=== PATIENT | female | born 1995 | race African-American/Black ===

== ENCOUNTER 2016-09-29 14:49 | Emergency (ER) | payer MEDICAID ==
[~2016-09-29] VITALS: Ht 175.3 cm; Wt 68.6 kg
[2016-09-29 14:50] VITALS: BP 101/69
[2016-09-29] MEDS ORDERED: IBUPROFEN 200 MG TABLET ONE (15:11)
[2016-09-29] MEDS ORDERED: ACETAMINOPHEN 325 MG TABLET ONE (15:11)
[2016-09-29] MEDS ORDERED: IBUPROFEN 200 MG TABLET PO ONE (15:30)
[2016-09-29] MEDS ORDERED: ACETAMINOPHEN 325 MG TABLET PO ONE (15:30)
== END 2016-09-29 15:29 | disposition home or self-care (01) ==
LOC: ED 15:26
DX: J02.9 Acute pharyngitis, unspecified (principal)
CPT/HCPCS: 99283

== ENCOUNTER 2017-02-22 05:17 | Emergency (ER) | payer MEDICAID ==
[~2017-02-22] VITALS: Ht 175.3 cm; Wt 75.1 kg
[2017-02-22] MEDS ORDERED: SODIUM CHLORIDE 0.9% 1,000 ML IV ONE (06:15)
[2017-02-22] MEDS ORDERED: MAALOX/HYOSCYAMINE/LIDOCAINE 45 ML BTL ONE (06:28)
[2017-02-22] MEDS ORDERED: SODIUM CHLORIDE FLUSH 10ML SYR IVF ONE (06:30)
[2017-02-22] MEDS ORDERED: MAALOX/HYOSCYAMINE/LIDOCAINE 45 ML BTL PO ONE (06:30)
[2017-02-22 06:48] LABS: ALANINE AMINOTRANSFERASE 15 U/L (12-78); ALBUMIN 3.1 g/dL (3.4-5.0); ANION GAP 6 mmol/L (5-15); CALCIUM 8.7 mg/dL (8.5-10.1); CHLORIDE 108 mmol/L (98-107); CREATININE 0.58 mg/dL (0.55-1.02)
[2017-02-22 06:52] LABS: ALKALINE PHOSPHATASE 49 U/L (45-117); BILIRUBIN,TOTAL 0.2 mg/dL (0.2-1.0); TOTAL PROTEIN 7.1 g/dL (6.4-8.2)
[2017-02-22 06:53] LABS: CULTURE INDICATED? NO; MICROSCOPIC NOT IND
[2017-02-22 07:18] LABS: BASOPHILS # (AUTO) 0.04 x10^3/uL (0-0.1); BASOPHILS % (AUTO) 1 % (0-1); EOSINOPHILS # (AUTO) 0.14 x10^3/uL (0-0.4); EOSINOPHILS % (AUTO) 3 % (1-7); LYMPHOCYTES # (AUTO) 2.32 x10^3/uL (1-3.4); LYMPHOCYTES % (AUTO) 44 % (22-44); MD SCAN; MEAN CORPUSCULAR HEMOGLOBIN 25.6 pg (27.0-34.8); MEAN CORPUSCULAR HGB CONC 32.2 g/dL (32.4-35.8); MEAN CORPUSCULAR VOLUME 79.6 fL (80-100); MEAN PLATELET VOLUME 8.4 fL (7.4-10.4); MONOCYTES # (AUTO) 0.64 x10^3/uL (0.2-0.8); MONOCYTES % (AUTO) 12 % (2-9); NEUTROPHILS % (AUTO) 40 % (42-75); PLATELET COUNT 149 x10^3/uL (130-400); RED BLOOD COUNT 4.37 x10^6/uL (3.82-5.3); RED CELL DISTRIBUTION WIDTH 18.5 % (9.6-15.2)
[2017-02-22 08:33] VITALS: BP 120/73
== END 2017-02-22 09:35 | disposition home or self-care (01) ==
LOC: ED 07:25
DX: O26.891 Other specified pregnancy related conditions, first trimester (principal); Z3A.00 Weeks of gestation of pregnancy not specified; R10.9 Unspecified abdominal pain; K08.89 Other specified disorders of teeth and supporting structures
CPT/HCPCS: 36415; 76700; 76801; 80053; 81003; 83690; 84702; 84703; 85025; 99285

== ENCOUNTER 2017-10-22 08:41 | Outpatient (CLI) | payer MEDICAID ==
[~2017-10-22] VITALS: Ht 175.3 cm; Wt 100.0 kg
[2017-10-22 08:55] VITALS: BP 114/68
[2017-10-22] MEDS ORDERED: PREN1TAB60 PO (09:24)
== END 2017-10-22 09:58 | disposition home or self-care (01) ==
LOC: LDOP 08:41
PROVIDERS: ATTEND Obstetrics & Gynecology
DX: O26.893 Other specified pregnancy related conditions, third trimester (principal); R10.9 Unspecified abdominal pain; Z3A.37 37 weeks gestation of pregnancy
CPT/HCPCS: 59025; 99201; 99211; G0463

== ENCOUNTER 2017-11-03 04:17 | Inpatient (IN) | payer MEDICAID ==
[2017-11-03] VITALS (7 sets, daily range): BP systolic 98–138; BP diastolic 51–76
[~2017-11-03] VITALS: Ht 175.3 cm; Wt 100.0 kg
[~2017-11-03 04:17] MED LIST: PREN1TAB60 PO
[2017-11-03] MEDS ORDERED: SODIUM CITRATE/CITRIC ACID 30 ML UDC PO ONE (04:30)
[2017-11-03] MEDS ORDERED: METOCLOPRAMIDE 5 MG/ML, 2ML IV ONE (04:30)
[2017-11-03] MEDS ORDERED: LACTATED RINGERS 1,000 ML IVBOLUS ONE (04:30)
[2017-11-03] MEDS ORDERED: OXYTOCIN 30U/ 0.9% NaCL 500ML 500 ML ONE (04:38)
[2017-11-03] MEDS ORDERED: METOCLOPRAMIDE 5 MG/ML, 2ML ONE (04:38)
[2017-11-03] MEDS ORDERED: SODIUM CITRATE/CITRIC ACID 30 ML UDC ONE (04:38)
[2017-11-03] MEDS ORDERED: MISOPROSTOL 200 MCG TABLET ONE (04:38)
[2017-11-03] MEDS ORDERED: NEWBORN KIT ONE (04:38)
[2017-11-03] MEDS: LACTATED RINGERS 1,000 ML IV SCH ×7 (04:45→22:31)
[2017-11-03] MEDS ORDERED: ONDANSETRON 2MG/ML, 2ML ONE (05:13)
[2017-11-03] MEDS ORDERED: SODIUM CHLORIDE 0.9% PF 10ML ONE ×2 (05:13)
[2017-11-03] MEDS ORDERED: OXYTOCIN 10 UNITS/ML, 1ML ONE (05:13)
[2017-11-03] MEDS ORDERED: HYDROmorphone 2 MG/ML, 1ML ONE (05:13)
[2017-11-03] MEDS ORDERED: FENTANYL PF 100 MCG/2ML ONE ×2 (05:13→07:46)
[2017-11-03] MEDS ORDERED: CEFAZOLIN 1,000 MG ONE (05:13)
[2017-11-03 05:14] LABS: BASOPHILS # (AUTO) 0.03 x10^3/uL (0-0.1); BASOPHILS % (AUTO) 1 % (0-1); EOSINOPHILS # (AUTO) 0.04 x10^3/uL (0-0.4); EOSINOPHILS % (AUTO) 1 % (1-7); LYMPHOCYTES # (AUTO) 2.02 x10^3/uL (1-3.4); LYMPHOCYTES % (AUTO) 31 % (22-44); MD NO; MEAN CORPUSCULAR HEMOGLOBIN 26.6 pg (27.0-34.8); MEAN CORPUSCULAR HGB CONC 33.1 g/dL (32.4-35.8); MEAN CORPUSCULAR VOLUME 80.4 fL (80-100); MEAN PLATELET VOLUME 8.9 fL (7.4-10.4); MONOCYTES # (AUTO) 0.45 x10^3/uL (0.2-0.8); MONOCYTES % (AUTO) 7 % (2-9); NEUTROPHILS # (AUTO) 4.01 x10^3/uL (1.8-6.8); NEUTROPHILS % (AUTO) 61 % (42-75); PLATELET COUNT 130 x10^3/uL (130-400); RED BLOOD COUNT 4.18 x10^6/uL (3.82-5.3); RED CELL DISTRIBUTION WIDTH 15.6 % (9.6-15.2)
[2017-11-03] MEDS ORDERED: METOPROLOL 1 MG/ML, 5ML ONE (05:40)
[2017-11-03] MEDS ORDERED: LACTATED RINGERS 1,000 ML IV SCH (06:31)
[2017-11-03] MEDS: OXYTOCIN 30U/ 0.9% NaCL 500ML 500 ML IV SCH ×4 (06:31→16:31)
[2017-11-03] MEDS ORDERED: ACETAMINOPHEN 325 MG TABLET PO PRN (07:00)
[2017-11-03] MEDS ORDERED: OXYcodone/APAP 5/325MG TABLET PO PRN (07:00)
[2017-11-03] MEDS ORDERED: CALCIUM CARBONATE 500 MG TAB.CHEW PO PRN (07:00)
[2017-11-03] MEDS ORDERED: ONDANSETRON 2MG/ML, 2ML IV PRN (07:00)
[2017-11-03] MEDS ORDERED: MISOPROSTOL 200 MCG TABLET PR PRN (07:00)
[2017-11-03] MEDS ORDERED: KETOROLAC 30 MG/1 ML ONE (07:11)
[2017-11-03] MEDS ORDERED: OXYcodone 5 MG/5 ML ORAL.SOL UDC ONE (07:12)
[2017-11-03] MEDS: KETOROLAC 30 MG/1 ML IV SCH ×4 (07:22→19:48)
[2017-11-03] MEDS ORDERED: OXYcodone 5 MG/5 ML ORAL.SOL UDC PO PRN (07:30)
[2017-11-03] MEDS: FENTANYL PF 100 MCG/2ML IVPush PRN ×2 (07:50→07:56)
[2017-11-03] MEDS ORDERED: morphine SULFATE 10 MG/ML, 1ML IVPush PRN (09:30)
[2017-11-03] MEDS ORDERED: MORPHINE SULFATE 4 MG/ML, 1ML ONE (09:49)
[2017-11-03] MEDS: PRENATAL VIT/IRON/FA 1 EACH TABLET PO SCH (09:51)
[2017-11-03] MEDS: OXYcodone/APAP 5/325MG TABLET PO PRN ×3 (11:38→19:48)
[2017-11-03 14:28] LABS: BASOPHILS # (AUTO) 0.02 x10^3/uL (0-0.1); BASOPHILS % (AUTO) 0 % (0-1); EOSINOPHILS # (AUTO) 0.06 x10^3/uL (0-0.4); EOSINOPHILS % (AUTO) 1 % (1-7); LYMPHOCYTES # (AUTO) 1.84 x10^3/uL (1-3.4); LYMPHOCYTES % (AUTO) 25 % (22-44); MD NO; MEAN CORPUSCULAR HEMOGLOBIN 26.2 pg (27.0-34.8); MEAN CORPUSCULAR HGB CONC 32.4 g/dL (32.4-35.8); MEAN CORPUSCULAR VOLUME 80.8 fL (80-100); MEAN PLATELET VOLUME 8.8 fL (7.4-10.4); MONOCYTES # (AUTO) 0.58 x10^3/uL (0.2-0.8); MONOCYTES % (AUTO) 8 % (2-9); NEUTROPHILS # (AUTO) 4.92 x10^3/uL (1.8-6.8); NEUTROPHILS % (AUTO) 66 % (42-75); PLATELET COUNT 114 x10^3/uL (130-400); RED BLOOD COUNT 3.82 x10^6/uL (3.82-5.3); RED CELL DISTRIBUTION WIDTH 15.4 % (9.6-15.2)
[2017-11-03] MEDS: DOCUSATE 100 MG CAPSULE PO PRN (19:48)
[2017-11-04] MEDS: OXYcodone/APAP 5/325MG TABLET PO PRN ×4 (00:18→16:06)
[2017-11-04] MEDS: KETOROLAC 30 MG/1 ML IV SCH ×2 (01:44→07:52)
[2017-11-04] MEDS: OXYTOCIN 30U/ 0.9% NaCL 500ML 500 ML IV SCH ×3 (02:31→22:31)
[2017-11-04 04:00] VITALS: BP 100/65
[2017-11-04] MEDS: LACTATED RINGERS 1,000 ML IV SCH ×3 (06:31→22:31)
[2017-11-04 06:55] VITALS: BP 105/66
[2017-11-04] MEDS: PRENATAL VIT/IRON/FA 1 EACH TABLET PO SCH (07:52)
[2017-11-04] MEDS: DOCUSATE 100 MG CAPSULE PO PRN ×2 (07:52→20:22)
[2017-11-04] MEDS: IBUPROFEN 600 MG TABLET PO PRN ×2 (13:54→20:22)
[2017-11-04 19:36] VITALS: BP 108/64
[2017-11-04] MEDS: OXYcodone IR 5MG TABLET PO PRN (20:22)
[2017-11-05] MEDS: OXYcodone IR 5MG TABLET PO PRN ×4 (00:49→12:49)
[2017-11-05] MEDS: IBUPROFEN 600 MG TABLET PO PRN ×2 (02:35→08:53)
[2017-11-05] MEDS: ACETAMINOPHEN 325 MG TABLET PO PRN ×2 (04:51→12:49)
[2017-11-05] MEDS: LACTATED RINGERS 1,000 ML IV SCH (06:31)
[2017-11-05 08:05] VITALS: BP 94/55
[2017-11-05] MEDS: OXYTOCIN 30U/ 0.9% NaCL 500ML 500 ML IV SCH (08:31)
[2017-11-05] MEDS: PRENATAL VIT/IRON/FA 1 EACH TABLET PO SCH (08:54)
[2017-11-05] MEDS: DOCUSATE 100 MG CAPSULE PO PRN (08:54)
[2017-11-05] MEDS ORDERED: DIPH,PERTUSS(ACELL),TET VAC/PF NC IM-VACC ONE ×2 (12:28→13:00)
[2017-11-05] MEDS ORDERED: IBUP-1223 PO ×2 (14:00→14:02)
[2017-11-05] MEDS ORDERED: OXYC-302 PO (14:01)
== END 2017-11-05 14:32 | disposition home or self-care (01) | DRG 766 ==
LOC: LDOP 04:17 → LDIP 04:28 → 2NW 08:25
PROVIDERS: ADMIT Obstetrics & Gynecology; ATTEND Obstetrics & Gynecology
PROC: 10D00Z1 Extraction of Products of Conception, Low, Open Approach (ICD-10-PCS; principal; 2017-11-03)
DX: O34.211 Maternal care for low transverse scar from previous cesarean delivery (principal); Z37.0 Single live birth; Z3A.39 39 weeks gestation of pregnancy; O99.62 Diseases of the digestive system complicating childbirth; K66.0 Peritoneal adhesions (postprocedural) (postinfection)
CPT/HCPCS: 36415; 85025; 86850; 86900; 90715; G0378; J0690; J1170; J1885; J2405; J3010; J2270; J2590; J2765; J7120

== ENCOUNTER 2017-12-09 11:02 | Emergency (ER) | payer MEDICAID ==
[~2017-12-09] VITALS: Ht 172.7 cm; Wt 100.7 kg
[~2017-12-09 11:02] MED LIST changes: +IBUP-1223 PO; +OXYC-302 PO
[2017-12-09 11:10] VITALS: BP 96/62
== END 2017-12-09 13:18 | disposition home or self-care (01) ==
LOC: ED 12:16
DX: K08.89 Other specified disorders of teeth and supporting structures (principal)
CPT/HCPCS: 99283

== ENCOUNTER 2018-06-17 09:07 | Emergency (ER) | payer MEDICAID ==
[~2018-06-17] VITALS: Ht 175.3 cm; Wt 78.7 kg
[2018-06-17 09:11] VITALS: BP 101/69
--- NOTE | 2018-06-17 10:26 | NUR ---
AMBULATORY TO CHECKOUT C STEADY GAIT. VERBALIZED UNDERSTANDING TO DC INSTRUCTIONS.
== END 2018-06-17 10:29 | disposition home or self-care (01) ==
LOC: ED 10:23
DX: L20.84 Intrinsic (allergic) eczema (principal)
CPT/HCPCS: 99283